=== PATIENT | female | born 1965 | race Caucasian/White ===

== ENCOUNTER 2022-04-10 15:16 | Outpatient (CLI) | payer SELFPAY | END 2022-04-10 15:17 | disposition home or self-care (01) | LOC: NAV RAD 15:16 | PROVIDERS: ATTEND Family Medicine | DX: M25.521 Pain in right elbow (principal) ==

== ENCOUNTER 2024-01-31 16:36 | Outpatient (CLI) | payer BC | END 2024-01-31 16:37 | disposition home or self-care (01) | LOC: NAV RAD 16:36 | PROVIDERS: ATTEND Family Medicine | DX: M54.6 Pain in thoracic spine (principal); M62.830 Muscle spasm of back; M47.814 Spondylosis without myelopathy or radiculopathy, thoracic region | CPT/HCPCS: 72072 ==